=== PATIENT | male | born 1955 | race African-American/Black ===

== ENCOUNTER 2020-01-09 11:02 | Observation (INO) ==
[2020-01-09] MEDS ORDERED: NALOXONE 0.4 MG/ML VIAL IV STA (11:33)
[2020-01-09 11:50] LABS: Basophils % 0.6 % (0.0-0.8); Eosinophils % 0.2 % (0.00-10.9); Hematocrit 51.2 VOL% (42.0-52.0); Hemoglobin 16.5 GM/DL (14.0-18.0); Immature Granulocytes % 0.2 %; Immature Granulocytes Absolute 0.01 #; Lymphocytes # 0.9 10*3/uL (1.4-4.0); Mean Corpuscular HGB Conc 32.2 GM/DL (32-36); Mean Corpuscular Volume 110.1 FL (87-102); Mean Platelet Volume 9.6 FL (9.6-12.0); Platelet Count 275 T/CUMM (130-400); Red Blood Count 4.65 MC/CUMM (3.8-5.5); Red Cell Distribution Width 12.7 % (9.3-17.3); White Blood Count 4.7 T/CUMM (4-12)
[2020-01-09 11:59] LABS: PT Patient Result 10.5 SECS (9.8-11.9)
[2020-01-09 12:40] LABS: Amorphous Crystals,Urine Moderate /HPF (Few); Apearance,Urine CLOUDY (Clear); Bacteria,Urine Occasional /HPF (Few); Bilirubin,Urine Negative (Negative); Blood, Urine Moderate mg/dL (Negative); Glucose,Urine (UA) Negative (Negative); Ketones,Urine Negative (Negative); Nitrite,Urine Negative (Negative); Protein,Urine 100 MG/DL; RBC,Urine 2 /HPF (0-4); Squamous Epithelial Cell,Urine Occasional /HPF (0-10); Urine Color Yellow (Yellow); Urine Specific Gravity 1.013 (1.001-1.035); Urine Urobilinogen < 2.0 EU/DL (0.2-1.0); WBC,Urine 4 /HPF (0-6)
[2020-01-09 12:41] LABS: Barbiturates Screen,Urine Negative (Negative); Benzodiazepines Screen,Urine Negative (Negative); Cannabinoid Screen,Urine Negative (Negative); Opiate Screen,Urine Positive (Negative); Phencyclidine Screen,Urine Negative (Negative)
[2020-01-09 12:47] LABS: Alanine Aminotransferase 25 U/L (16-61); Albumin 4.7 G/DL (3.4-5.0); Alkaline Phosphatase 57 U/L (45-117); Aspartate Amino Transferase 38 U/L (0-37); Bilirubin,Total < 0.39 MG/DL (0.2-1.0); Blood Urea Nitrogen 7 MG/DL (7-18); Calcium 9.6 MG/DL (8.5-10.1); Estimated Glom Filtration Rate 76 ML/MIN; Glucose 137 MG/DL (74-106); Osmolality,Calculated 254.2 MOS/KG (273-304); Total Protein 9.3 G/DL (6.4-8.3)
[2020-01-09] MEDS ORDERED: DEXTROSE 50% 25 GM/50 ML VIAL IV PRN (13:20)
[2020-01-09] MEDS ORDERED: GLUCAGON 1 MG VIAL IM PRN (13:20)
[2020-01-09] MEDS ORDERED: ONDANSETRON 4 MG/2 ML VIAL IV PRN (13:20)
[2020-01-09] MEDS ORDERED: ALBUTEROL/IPRATROPIUM 3 ML NEB RESP TX PRN (13:20)
[2020-01-09] MEDS ORDERED: hydrALAZINE 20 MG/1 ML VIAL IV PRN (13:28)
[2020-01-09] MEDS: ENOXAPARIN 40 MG/0.4 ML SYRINGE SUBCUT SCH (15:47)
[2020-01-09] MEDS: SODIUM CHLORIDE 0.9% 1,000 ML IV SCH (15:47)
[2020-01-09] MEDS: LACTULOSE 20 GM/30 ML UDCUP PO SCH (20:33)
[2020-01-09] MEDS ORDERED: TOPIRAMATE 100 MG TABLET PO SCH (21:00)
[2020-01-10] MEDS: SODIUM CHLORIDE 0.9% 1,000 ML IV SCH ×2 (00:45→15:16)
[2020-01-10 06:09] LABS: Basophils % 0.1 % (0.0-0.8); Hemoglobin 13.9 GM/DL (14.0-18.0); Immature Granulocytes % 0.4 %; Immature Granulocytes Absolute 0.03 #; Lymphocytes # 0.7 10*3/uL (1.4-4.0); Lymphocytes % 8.4 % (21.2-54.2); Mean Corpuscular HGB Conc 33.9 GM/DL (32-36); Mean Corpuscular Volume 102.5 FL (87-102); Monocytes % 11.5 % (1.7-12.7); Neutrophils % 79.6 % (38.7-73.9); Platelet Count 211 T/CUMM (130-400); Red Cell Distribution Width 12.3 % (9.3-17.3); White Blood Count 7.9 T/CUMM (4-12)
[2020-01-10 06:40] LABS: Albumin 3.2 G/DL (3.4-5.0); Bilirubin,Total 0.6 MG/DL (0.2-1.0); Calcium 8.7 MG/DL (8.5-10.1); Osmolality,Calculated 264.4 MOS/KG (273-304); Risk Ratio 1.54; Total Protein 6.9 G/DL (6.4-8.3); VLDL CHOLESTEROL 13.2 MG/DL
[2020-01-10] MEDS ORDERED: ASPIRIN EC 325 MG TABLET PO SCH (09:00)
[2020-01-10] MEDS ORDERED: LACTULOSE 20 GM/30 ML UDCUP PO ONE (09:37)
[2020-01-10] MEDS ORDERED: diphenhydrAMINE 50 MG/1 ML VIAL IV ONE (09:38)
[2020-01-10] MEDS ORDERED: LORazepam 2 MG/1 ML VIAL IV ONE (09:38)
[2020-01-10] MEDS: PANTOPRAZOLE 40 MG TABLET PO SCH (13:21)
[2020-01-10] MEDS: Ritonavir [Norvir] 100 MG PO SCH (13:21)
[2020-01-10] MEDS: LACTULOSE 20 GM/30 ML UDCUP PO SCH ×2 (13:21→21:24)
[2020-01-10] MEDS: Darunavir Ethanolate [Prezista] 800 MG PO SCH (13:22)
[2020-01-10] MEDS: EMTRICITABINE TENOFOVIR ALAFEN PO SCH (13:22)
[2020-01-10] MEDS: THIAMINE 200 MG/2 ML VIAL IV SCH (13:29)
[2020-01-10] MEDS: ENOXAPARIN 40 MG/0.4 ML SYRINGE SUBCUT SCH (13:30)
[2020-01-10] MEDS: TOPIRAMATE 100 MG TABLET PO SCH (21:24)
[2020-01-11] MEDS: SODIUM CHLORIDE 0.9% 1,000 ML IV SCH ×3 (01:31→21:13)
[2020-01-11 09:28] LABS: Basophils % 0.9 % (0.0-0.8); Eosinophils % 0.7 % (0.00-10.9); Hematocrit 44.2 VOL% (42.0-52.0); Hemoglobin 14.7 GM/DL (14.0-18.0); Immature Granulocytes % 0.5 %; Immature Granulocytes Absolute 0.02 #; Lymphocytes # 0.7 10*3/uL (1.4-4.0); Lymphocytes % 16.2 % (21.2-54.2); Mean Corpuscular HGB Conc 33.3 GM/DL (32-36); Mean Corpuscular Volume 105.2 FL (87-102); Mean Platelet Volume 9.2 FL (9.6-12.0); Monocytes % 10.3 % (1.7-12.7); Neutrophils % 71.4 % (38.7-73.9); Platelet Count 185 T/CUMM (130-400); Red Cell Distribution Width 12.9 % (9.3-17.3); White Blood Count 4.4 T/CUMM (4-12)
[2020-01-11] MEDS: LACTULOSE 20 GM/30 ML UDCUP PO SCH ×2 (09:51→21:12)
[2020-01-11] MEDS: ASPIRIN EC 81 MG TABLET PO SCH (09:51)
[2020-01-11] MEDS: Darunavir Ethanolate [Prezista] 800 MG PO SCH (09:52)
[2020-01-11] MEDS: Ritonavir [Norvir] 100 MG PO SCH (09:52)
[2020-01-11] MEDS: TOPIRAMATE 100 MG TABLET PO SCH ×2 (09:52→21:12)
[2020-01-11] MEDS: PANTOPRAZOLE 40 MG TABLET PO SCH (09:52)
[2020-01-11] MEDS: THIAMINE 200 MG/2 ML VIAL IV SCH (10:43)
[2020-01-11] MEDS: EMTRICITABINE TENOFOVIR ALAFEN PO SCH (10:56)
[2020-01-11] MEDS: ENOXAPARIN 40 MG/0.4 ML SYRINGE SUBCUT SCH (14:07)
[2020-01-12 06:04] LABS: Basophils % 1.2 % (0.0-0.8); Eosinophils # 0.1 10*3/uL (0.0-0.87); Hematocrit 38.1 VOL% (42.0-52.0); Hemoglobin 12.8 GM/DL (14.0-18.0); Immature Granulocytes % 0.6 %; Immature Granulocytes Absolute 0.02 #; Lymphocytes # 0.9 10*3/uL (1.4-4.0); Lymphocytes % 26.8 % (21.2-54.2); Mean Corpuscular HGB Conc 33.6 GM/DL (32-36); Monocytes % 13.4 % (1.7-12.7); Platelet Count 190 T/CUMM (130-400); Red Blood Count 3.63 MC/CUMM (3.8-5.5); Red Cell Distribution Width 12.7 % (9.3-17.3); White Blood Count 3.4 T/CUMM (4-12)
[2020-01-12 06:25] LABS: Albumin 2.9 G/DL (3.4-5.0); Calcium 8.4 MG/DL (8.5-10.1); Osmolality,Calculated 270.8 MOS/KG (273-304)
[2020-01-12] MEDS ORDERED: LORazepam 2 MG/1 ML VIAL IV ONE (07:30)
[2020-01-12] MEDS ORDERED: diphenhydrAMINE 50 MG/1 ML VIAL IV ONE (07:31)
[2020-01-12] MEDS ORDERED: ZIPRASIDONE 20 MG/1 ML VIAL IM ONE (07:46)
[2020-01-12] MEDS ORDERED: MULTIVITAMIN (BEROCCA) TABLET PO SCH (09:00)
[2020-01-12] MEDS: Darunavir Ethanolate [Prezista] 800 MG PO SCH (09:17)
[2020-01-12] MEDS: LACTULOSE 20 GM/30 ML UDCUP PO SCH ×3 (09:17→22:34)
[2020-01-12] MEDS: Ritonavir [Norvir] 100 MG PO SCH (09:17)
[2020-01-12] MEDS: ASPIRIN EC 81 MG TABLET PO SCH (09:17)
[2020-01-12] MEDS: THIAMINE 200 MG/2 ML VIAL IV SCH (09:17)
[2020-01-12] MEDS: PANTOPRAZOLE 40 MG TABLET PO SCH (09:17)
[2020-01-12] MEDS: TOPIRAMATE 100 MG TABLET PO SCH ×2 (09:17→22:34)
[2020-01-12] MEDS: EMTRICITABINE TENOFOVIR ALAFEN PO SCH (09:17)
[2020-01-12] MEDS: SODIUM CHLORIDE 0.9% 1,000 ML IV SCH ×2 (09:18→14:43)
[2020-01-12] MEDS: ENOXAPARIN 40 MG/0.4 ML SYRINGE SUBCUT SCH (14:43)
[2020-01-13] MEDS: LACTULOSE 20 GM/30 ML UDCUP PO SCH (01:39)
[2020-01-13 04:55] VITALS: BP 113/72
[2020-01-13 05:50] LABS: Basophils # 0.1 10*3/uL (0.0-0.2); Basophils % 1.5 % (0.0-0.8); Eosinophils # 0.1 10*3/uL (0.0-0.87); Eosinophils % 2.9 % (0.00-10.9); Hematocrit 41.9 VOL% (42.0-52.0); Hemoglobin 14.4 GM/DL (14.0-18.0); Immature Granulocytes % 0.6 %; Immature Granulocytes Absolute 0.02 #; Lymphocytes # 0.8 10*3/uL (1.4-4.0); Lymphocytes % 21.9 % (21.2-54.2); Mean Corpuscular HGB Conc 34.4 GM/DL (32-36); Mean Corpuscular Volume 102.4 FL (87-102); Mean Platelet Volume 10.2 FL (9.6-12.0); Monocytes % 12.9 % (1.7-12.7); Neutrophils % 60.2 % (38.7-73.9); Platelet Count 194 T/CUMM (130-400); Red Blood Count 4.09 MC/CUMM (3.8-5.5); Red Cell Distribution Width 12.9 % (9.3-17.3); White Blood Count 3.4 T/CUMM (4-12)
[2020-01-13 06:26] LABS: Albumin 3.3 G/DL (3.4-5.0); Calcium 9.3 MG/DL (8.5-10.1); Osmolality,Calculated 276.5 MOS/KG (273-304); Total Protein 6.9 G/DL (6.4-8.3)
== END 2020-01-13 08:50 | disposition left against medical advice (07) ==
LOC: N.ED 11:02 → N.EDINP 11:02 → N.5E 13:52 → N.TELEN 01-12 11:27
PROVIDERS: ADMIT Internal Medicine; ATTEND Internal Medicine

== ENCOUNTER 2020-05-19 18:22 | Observation (INO) ==
[2020-05-19 19:26] LABS: ABG Base Excess 2.8 MMOL/L (-2.5-2.5); ABG HCO3 26.8 MMOL/L (20-26); ABG Oxygen Saturation 96.5 % (95-100); ABG PCO2 47.8 MM HG (35-48); ABG PH 7.386 (7.35-7.45); ABG PO2 89.2 MM HG (80-95); ABG TCO2 24.5 MMOL/L (23-27); Allen Test Positive
[2020-05-19 19:26] LABS: Basophils % 0.2 % (0.0-0.8); Hematocrit 45.4 VOL% (42.0-52.0); Hemoglobin 15.5 GM/DL (14.0-18.0); Immature Granulocytes % 0.4 %; Immature Granulocytes Absolute 0.02 #; Lymphocytes # 0.3 10*3/uL (1.4-4.0); Mean Corpuscular HGB Conc 34.1 GM/DL (32-36); Mean Corpuscular Volume 104.4 FL (87-102); Mean Platelet Volume 9.4 FL (9.6-12.0); Monocytes % 4.9 % (1.7-12.7); Neutrophils % 88.5 % (38.7-73.9); Platelet Count 210 T/CUMM (130-400); Red Blood Count 4.35 MC/CUMM (3.8-5.5); Red Cell Distribution Width 12.3 % (9.3-17.3); White Blood Count 4.7 T/CUMM (4-12)
[2020-05-19 19:37] LABS: Acetaminophen < 2.0 UG/ML (10-30); Salicylate 3.7 MG/DL (2.8-20)
[2020-05-19 19:39] LABS: Alanine Aminotransferase 19 U/L (16-61); Albumin 3.9 G/DL (3.4-5.0); Alkaline Phosphatase 43 U/L (45-117); Aspartate Amino Transferase 34 U/L (0-37); Bilirubin,Total < 0.39 MG/DL (0.2-1.0); Blood Urea Nitrogen 6 MG/DL (7-18); Calcium 9.2 MG/DL (8.5-10.1); Estimated Glom Filtration Rate 65 ML/MIN; Glucose 121 MG/DL (74-106); Osmolality,Calculated 260.7 MOS/KG (273-304); Total Protein 7.2 G/DL (6.4-8.3)
[2020-05-19 19:41] LABS: PT Patient Result 10.3 SECS (9.8-11.9)
[2020-05-19] MEDS ORDERED: LACTATED RINGERS 1,000 ML IV ONE (19:42)
[2020-05-19 21:15] LABS: Barbiturates Screen,Urine Negative (Negative); Benzodiazepines Screen,Urine Positive (Negative); Cannabinoid Screen,Urine Positive (Negative); Opiate Screen,Urine Positive (Negative); Phencyclidine Screen,Urine Negative (Negative)
[2020-05-19 21:17] LABS: Bacteria,Urine Occasional /HPF (Few); Bilirubin,Urine Negative (Negative); Blood, Urine Small mg/dL (Negative); Glucose,Urine (UA) Negative (Negative); Hyaline Casts,Urine 12 /LPF (0-3); Ketones,Urine Negative (Negative); Mucus,Urine Occasional /LPF (Occasional); Nitrite,Urine Negative (Negative); Protein,Urine 100 MG/DL; RBC,Urine 2 /HPF (0-4); Sperm,Urine Occasional /HPF (Negative); Squamous Epithelial Cell,Urine Occasional /HPF (0-10); Urine Appearance CLEAR (Clear); Urine Color Yellow (Yellow); Urine Specific Gravity 1.012 (1.001-1.035); Urine Urobilinogen < 2.0 EU/DL (0.2-1.0)
[2020-05-20] MEDS ORDERED: ACETAMINOPHEN 325 MG TABLET PO PRN (00:16)
[2020-05-20] MEDS ORDERED: DEXTROSE 50% 25 GM/50 ML VIAL IV PRN (00:16)
[2020-05-20] MEDS ORDERED: ONDANSETRON 4 MG/2 ML VIAL IV PRN (00:16)
[2020-05-20] MEDS ORDERED: GLUCAGON 1 MG VIAL IM PRN (00:16)
[2020-05-20] MEDS: SODIUM CHLORIDE 0.9% 1,000 ML IV SCH ×2 (04:24→12:16)
[2020-05-20] MEDS ORDERED: ENOXAPARIN 40 MG/0.4 ML SYRINGE SUBCUT SCH (06:00)
[2020-05-20] MEDS ORDERED: Darunavir Ethanolate [Prezista] 800 MG PO SCH (09:00)
[2020-05-20] MEDS ORDERED: Ritonavir [Norvir] 100 MG PO SCH (09:00)
[2020-05-20] MEDS ORDERED: levETIRAcetam 500 MG TABLET PO SCH (09:00)
[2020-05-20] MEDS ORDERED: EMTRICITABINE TENOFOVIR ALAFEN PO SCH (09:00)
[2020-05-20] MEDS ORDERED: PANTOPRAZOLE 40 MG TABLET PO SCH (09:00)
[2020-05-20 12:25] VITALS: BP 103/65
== END 2020-05-20 16:14 | disposition left against medical advice (07) ==
LOC: EDBD → EDUNIT# → N.ED 18:22 → N.EDINP 18:22 → N.TELES 05-20 03:41
PROVIDERS: ADMIT Internal Medicine; ATTEND Internal Medicine

== ENCOUNTER 2022-10-20 15:28 | Observation (INO) ==
[2022-10-20] MEDS ORDERED: LORazepam 2 MG/1 ML VIAL IM STA ×2 (18:18→19:00)
[2022-10-20] MEDS ORDERED: HALOPERIDOL 5 MG/ML AMP IM ONE (18:18)
[2022-10-20] MEDS ORDERED: levETIRAcetam 500 MG/5 ML VIAL IV STA (18:18)
[2022-10-20] MEDS ORDERED: THIAMINE INJ 100 MG, FOLIC ACID INJ 1 MG, MAGNESIUM SULF INJ 2 GM, MULTIVITAMIN INJ 10 ... IV ONE (18:18)
[2022-10-20] MEDS ORDERED: HALOPERIDOL 5 MG/ML AMP IM STA (18:18)
[2022-10-20 19:08] LABS: Mucus,Urine Occasional /LPF (Occasional); RBC,Urine 5 /HPF (0-4); Sperm,Urine Few /HPF (Negative)
[2022-10-20 19:09] LABS: Bilirubin,Urine Negative (Negative); Blood, Urine Moderate mg/dL (Negative); Glucose,Urine (UA) Negative (Negative); Ketones,Urine Negative (Negative); Nitrite,Urine Negative (Negative); Protein,Urine >=300 mg/dL (Negative); Urine Appearance Clear (Clear); Urine Color Yellow (Yellow); Urine Specific Gravity > 1.030 (1.001-1.035); Urine Urobilinogen 0.2 eU/dL (<2.0); Urine pH 5.5 (4.5-8.0)
[2022-10-20 19:22] LABS: Basophils % 0.2 % (0.0-0.8); Eosinophils % 0.2 % (0.00-10.9); Hematocrit 41.3 VOL% (42.0-52.0); Immature Granulocytes % 0.4 %; Immature Granulocytes Absolute 0.02 #; Lymphocytes # 0.5 10*3/uL (1.4-4.0); Lymphocytes % 11.6 % (21.2-54.2); Mean Corpuscular HGB Conc 33.9 GM/DL (32-36); Mean Corpuscular Volume 99.5 FL (87-102); Mean Platelet Volume 9.2 FL (9.6-12.0); Monocytes # 0.3 10*3/uL (0.11-0.8); Monocytes % 7.4 % (1.7-12.7); Neutrophils % 80.2 % (38.7-73.9); Platelet Count 219 T/CUMM (130-400); Red Blood Count 4.15 MC/CUMM (3.8-5.5); Red Cell Distribution Width 12.3 % (9.3-17.3); White Blood Count 4.6 T/CUMM (4-12)
[2022-10-20 19:25] LABS: Barbiturates Screen,Urine Negative (Negative); Benzodiazepines Screen,Urine Negative (Negative); Cannabinoid Screen,Urine Negative (Negative); Opiate Screen,Urine Positive (Negative); Phencyclidine Screen,Urine Negative (Negative)
[2022-10-20 19:34] LABS: Alanine Aminotransferase 17 U/L (16-61); Albumin 3.8 G/DL (3.4-5.0); Alkaline Phosphatase 52 U/L (45-117); Aspartate Amino Transferase 43 U/L (0-37); Bilirubin,Total < 0.39 MG/DL (0.20-1.00); Blood Urea Nitrogen 14 MG/DL (7-18); Calcium 10.2 MG/DL (8.5-10.1); Carbon Dioxide 29 MMOL/L (21-32); Chloride 99 MMOL/L (98-107); Glucose 95 MG/DL (74-106); Osmolality,Calculated 266.4 MOS/KG (273-304); Potassium 4.6 MMOL/L (3.5-5.1); Sodium 133 MMOL/L (136-145)
[2022-10-20 19:52] LABS: CKMB % 1.47 %
[2022-10-20] MEDS ORDERED: SIMETHICONE CHEW 125 MG TABLET PO PRN (20:25)
[2022-10-20] MEDS ORDERED: NICOTINE 21 MG/24 HR PATCH TRANSDERM PRN (20:25)
[2022-10-20] MEDS ORDERED: DOCUSATE SODIUM 100 MG CAPSULE PO PRN (20:25)
[2022-10-20] MEDS ORDERED: ACETAMINOPHEN 325 MG TABLET PO PRN (20:25)
[2022-10-20] MEDS ORDERED: ONDANSETRON 4 MG/2 ML VIAL IV PRN (20:25)
[2022-10-20] MEDS ORDERED: hydrALAZINE 20 MG/1 ML VIAL IV PRN (20:25)
[2022-10-20] MEDS ORDERED: LORazepam 2 MG/1 ML VIAL IV PRN (20:32)
[2022-10-20] MEDS ORDERED: ENOXAPARIN 40 MG/0.4 ML SYRINGE SUBCUT SCH (21:00)
[2022-10-20] MEDS: SODIUM CHLORIDE 0.9% 1,000 ML IV SCH (21:10)
[2022-10-20] MEDS ORDERED: INFLUENZA VIRUS VACCINE 0.5 ML SYRINGE IM ONE (23:56)
[2022-10-21 06:07] LABS: Basophils % 0.2 % (0.0-0.8); Eosinophils # 0.1 10*3/uL (0.0-0.87); Eosinophils % 1.4 % (0.00-10.9); Hematocrit 41.2 VOL% (42.0-52.0); Hemoglobin 13.8 GM/DL (14.0-18.0); Immature Granulocytes % 0.2 %; Immature Granulocytes Absolute 0.01 #; Lymphocytes # 0.7 10*3/uL (1.4-4.0); Lymphocytes % 16.1 % (21.2-54.2); Mean Corpuscular HGB Conc 33.5 GM/DL (32-36); Mean Platelet Volume 9.2 FL (9.6-12.0); Monocytes # 0.7 10*3/uL (0.11-0.8); Monocytes % 15.6 % (1.7-12.7); Neutrophils % 66.5 % (38.7-73.9); Platelet Count 209 T/CUMM (130-400); Red Blood Count 4.16 MC/CUMM (3.8-5.5); Red Cell Distribution Width 12.4 % (9.3-17.3); White Blood Count 4.4 T/CUMM (4-12)
[2022-10-21 06:29] LABS: Calcium 9.3 MG/DL (8.5-10.1)
[2022-10-21 06:31] LABS: Eosinophils 3 % (0-10); Lymphocytes 13 % (20-55); Platelet Estimate Adequate; Total Cells Counted 100
[2022-10-21 06:39] LABS: CKMB % 0.85 %; High Sensitive Troponin I* 35.7 ng/L (0-78)
[2022-10-21] MEDS ORDERED: PANTOPRAZOLE 40 MG TABLET PO SCH (09:00)
[2022-10-21] MEDS: SODIUM CHLORIDE 0.9% 1,000 ML IV SCH (10:00)
[2022-10-21 16:24] VITALS: BP 131/90
[2022-10-22 17:10] LABS: % CD4 (T Cells) 20 % (32-64); % CD8 (T Cells) 63 % (8-40); 4/8 Ratio 0.3 (>=0.9)
== END 2022-10-21 20:00 | disposition left against medical advice (07) ==
LOC: N.EDINP 15:28 → N.ED 15:28 → N.2E 22:42
PROVIDERS: ADMIT Internal Medicine; ATTEND Internal Medicine